=== PATIENT | female | born 1990 | race Caucasian/White ===

== ENCOUNTER 2025-05-27 12:37 | Outpatient (RCR) | payer BC, SELFPAY ==
[2025-05-27 12:53] VITALS: BMI 51.8
--- NOTE | 2025-05-27 14:18 | PCDIET ---
Nutrition consult completed.
== END 2025-08-11 10:39 | disposition home or self-care (01) ==
LOC: ANHDMC 12:37
PROVIDERS: PCP Student in an Organized Health Care Education/Training Program; Visit Provider Student in an Organized Health Care Education/Training Program
DX: E66.01 Morbid (severe) obesity due to excess calories (principal); Z71.3 Dietary counseling and surveillance
CPT/HCPCS: 97802